=== PATIENT | female | born 1955 | race Caucasian/White ===

== ENCOUNTER 2017-01-07 06:22 | Day surgery (SDC) | payer OTHER ==
[~2017-01-07] VITALS: Ht 149.9 cm; Wt 56.7 kg
[~2017-01-07 06:22] MED LIST: ANTIINFLAMMATORY; HYDR-4452 PO; IRON; LEVO500T6 PO; METR500T1 PO; OXYC1TAB PO; SULF-59 PO; TRAZ-289 PO; [UNRECOGNIZED DRUG - REMARK]
[2017-01-07] MEDS ORDERED: MELO7.5T11 PO (08:08)
[2017-01-07] MEDS ORDERED: OMEG300C PO (08:08)
[2017-01-07] MEDS ORDERED: [UNRECOGNIZED DRUG - CODE] PO (08:08)
[2017-01-07] MEDS ORDERED: MULT-2253 PO (08:08)
[2017-01-07] MEDS ORDERED: LACTATED RINGERS 1,000 ML IV SCH (08:16)
[2017-01-07] MEDS ORDERED: HYDROmorphone 1 MG/ML AMP IVP PRN ×2 (08:20→09:45)
[2017-01-07] MEDS ORDERED: ONDANSETRON 4 MG/2 ML VIAL IVP PRN (08:20)
[2017-01-07] MEDS ORDERED: MEPERIDINE 25 MG/ML SYR IVP PRN (08:20)
[2017-01-07] MEDS ORDERED: diphenhydrAMINE 50 MG/ML VIAL IVP PRN (08:20)
[2017-01-07] MEDS ORDERED: MEPERIDINE 50 MG/ML SYR ONE (08:27)
[2017-01-07] MEDS ORDERED: MIDAZOLAM 2 MG/2 ML VIAL ONE (08:27)
[2017-01-07] MEDS ORDERED: fentaNYL 0.05 MG/ML VIAL ONE ×2 (08:27)
[2017-01-07] MEDS ORDERED: PROPOFOL 200 MG/20 ML VIAL IV ONE (08:30)
[2017-01-07] MEDS ORDERED: SEVOFLURANE 250 ML BTL INH ONE (08:30)
[2017-01-07] MEDS ORDERED: DEXAMETHASONE 4 MG/ML VIAL ONE (08:30)
[2017-01-07] MEDS ORDERED: ceFAZolin 1,000 MG VIAL ONE (08:30)
[2017-01-07] MEDS ORDERED: ONDANSETRON 4 MG/2 ML VIAL ONE (08:30)
[2017-01-07] MEDS ORDERED: LIDOCAINE 1% 50 ML ONE (08:46)
[2017-01-07] MEDS ORDERED: BUPIVACAINE-MPF/EPI 0.25% 30 ML VIAL INJ ONE (08:47)
[2017-01-07] MEDS ORDERED: HYDROcodone/APAP 5/325 MG 1 TAB TAB PO PRN (09:45)
[2017-01-07] MEDS ORDERED: MORPHINE SULFATE 2 MG/ML SYR IVP PRN (09:45)
[2017-01-07] MEDS ORDERED: ONDANSETRON 4 MG/2 ML VIAL IV PRN (09:45)
[2017-01-07] MEDS ORDERED: MORPHINE SULFATE 4 MG/ML SYR IV PRN (09:45)
[2017-01-07] MEDS ORDERED: MEPERIDINE 25 MG/ML SYR ONE (10:20)
[2017-01-07] MEDS ORDERED: HYDROmorphone PFS 2 MG/ML SYR ONE (10:51)
== END 2017-01-07 12:20 | disposition home or self-care (01) ==
LOC: MOR 06:22 → MMU 06:23 → MOR 12:20
PROVIDERS: ATTEND Surgery
DX: T81.4XXA Infection following a procedure, initial encounter (principal); M19.90 Unspecified osteoarthritis, unspecified site; M06.9 Rheumatoid arthritis, unspecified; Z93.3 Colostomy status; D64.9 Anemia, unspecified; Z87.891 Personal history of nicotine dependence
CPT/HCPCS: 13101; 22900; 71010; 87070; 87075; 87186; 87205; 93005; J0690; J1100; J1170; J2001; J2175; J2250; J2405; J2704; J3010; J3490; J7060; J7120; S0630; J7030

== ENCOUNTER 2017-12-13 07:10 | Inpatient (IN) | payer OTHER ==
[~2017-12-13] VITALS: Ht 149.9 cm; Wt 55.8 kg
[~2017-12-13 07:10] MED LIST changes: +ACET-787 PO; -HYDR-4452 PO; +MELO7.5T11 PO; +MULT-2253 PO; +OMEG300C PO; +[UNRECOGNIZED DRUG - CODE] PO
[2017-12-13] MEDS ORDERED: BUPIVACAINE-MPF 0.25% 30 ML VIAL INJ ONE (10:17)
[2017-12-13] MEDS ORDERED: fentaNYL 0.05 MG/ML VIAL ONE (10:21)
[2017-12-13] MEDS ORDERED: HYDROmorphone PFS 2 MG/ML SYR ONE ×2 (10:21→12:16)
[2017-12-13] MEDS ORDERED: PHENYLEPHRINE 10 MG/ML VIAL IV ONE (10:24)
[2017-12-13] MEDS ORDERED: ONDANSETRON 4 MG/2 ML VIAL IVP ONE (10:24)
[2017-12-13] MEDS ORDERED: GLYCOPYRROLATE 0.2 MG/ML VIAL IV ONE (10:24)
[2017-12-13] MEDS ORDERED: KETOROLAC 15 MG/ML VIAL IVP ONE (10:24)
[2017-12-13] MEDS ORDERED: DEXAMETHASONE 4 MG/ML VIAL IVP ONE (10:24)
[2017-12-13] MEDS ORDERED: DESFLURANE 240 ML BTL INH ONE (10:24)
[2017-12-13] MEDS ORDERED: SUCCINYLCHOLINE CHLORIDE 200 MG/10 ML VIAL IV ONE (10:24)
[2017-12-13] MEDS ORDERED: ROCURONIUM 50 MG/5 ML VIAL IV ONE (10:24)
[2017-12-13] MEDS ORDERED: PROPOFOL 200 MG/20 ML VIAL IV ONE (10:24)
[2017-12-13] MEDS ORDERED: ONDANSETRON 4 MG/2 ML VIAL IVP PRN (12:05)
[2017-12-13] MEDS ORDERED: ACETAMINOPHEN 325 MG TAB PO PRN (12:15)
[2017-12-13] MEDS ORDERED: MORPHINE SULFATE 4 MG/ML SYR IVP PRN (12:15)
[2017-12-13] MEDS ORDERED: ONDANSETRON 4 MG/2 ML VIAL IV PRN (12:15)
[2017-12-13] MEDS: NACL 0.9% 1,000 ML IV SCH (12:15)
[2017-12-13] MEDS: HYDROmorphone PFS 2 MG/ML SYR IVP PRN ×2 (12:17→12:27)
[2017-12-13 13:00] VITALS: BP 120/72
--- NOTE | 2017-12-13 13:00 | NUR ---
RECEIVED PATIENT FROM O.R. NURSES VIA BED. PATIENT IS AWAKE AT THIS TIME. PATIENT VITAL SIGNS ARE WNL: 97.9, 120/72, 77 HR, 97%, 16RR. PATIENT HAS IV 20G NOTED ON HER LEFT HAND. HOOKED PATIENT UP TO NORMAL SALINE LITER BAG AT 70 ML/HR. PER REPORT, PATIENT HAS KARLI IN HER ABDOMEN AREA. ABDOMINAL WOUND AREA COVERED BY DRY AND INTACT DRESSING AND DRAINING INTO A ALFREDO CHAVEZ TUBE. DRAINAGE IS SEROSANGUINEOUS. O.R. NURSE MIKE SAID THAT SHE DRAINED 10 ML EARLIER. PATIENT IS AWAKE AND ALERT AT THIS TIME. PLACED CALL LIGHT WITHIN REACH OF PATIENT. WILL CONTINUE TO MONITOR PATIENT.
--- NOTE | 2017-12-13 13:15 | NUR ---
PATIENT ALERT AND ORIENTED X4. PATIENT'S BLOOD PRESSURE IS 128/70, 69 HR, 95%, 98.0. PATIENT IN STABLE CONDITION. WILL CONTINUE TO MONITOR
--- NOTE | 2017-12-13 13:30 | NUR ---
PATIENT VITAL SIGNS: 98.4 TEMP, 125/77, 78 HR, 18RR, 98% ON 2 LITERS O2 VIA NC.
--- NOTE | 2017-12-13 14:00 | NUR ---
PATIENT VITAL SIGNS: 98 TEMP, 118/75, 78 HR, 16RR, 97% ON 2 LITERS O2 VIA NC.
--- NOTE | 2017-12-13 14:30 | NUR ---
PATIENT VITAL SIGNS: 97.9 TEMP, 121/74, 78 HR, 18RR, 97% ON 2 LITERS O2 VIA NC.
--- NOTE | 2017-12-13 15:00 | NUR ---
PATIENT RESTING IN BED. NO RESPIRATORY DISTRESS NOTED AT THIS TIME. NO RESPIRATORY DEPRESSION NOTED AT THIS TIME. WILL CONTINUE TO MONITOR PATIENT.
--- NOTE | 2017-12-13 15:30 | NUR ---
PATIENT VITAL SIGNS: 98 TEMP, 133/75, 81 HR, 16RR, 98% ON 2 LITERS O2 VIA NC.
[2017-12-13 16:00] VITALS: BP 133/77
--- NOTE | 2017-12-13 16:30 | NUR ---
PATIENT VITAL SIGNS: 97.8 TEMP, 128/70, 77 HR, 16RR, 96% ON 2 LITERS O2 VIA NC.
[2017-12-13] MEDS: HYDROcodone/APAP 5/325 MG 1 TAB TAB PO PRN ×2 (17:11→22:04)
--- NOTE | 2017-12-13 18:28 | NUR ---
DRAINED 45 ML OF BRIGHT RED BLOOD FROM ALFREDO CHAVEZ DRAIN. PATIENT IS IN STABLE CONDITION. WILL CONTINUE TO MONITOR PATIENT.
--- NOTE | 2017-12-13 19:15 | NUR ---
RECEIVED PATIENT REPORT AT BEDSIDE. PATIENT ASLEEP BUT AROUSABLE. PATIENT ON 2L O2 VIA NC. NO S/S OF DISTRESS. ABD WOUND DRESSING NOTED. DRESSING CLEAN DRY AND INTACT. FAIZA DRAIN IN PLACE WITH 5ML OF BRIGHT RED DRAINAGE NOTED AT THIS TIME. IV LINE NOTED TO THE LEFT HAND WITH IVF INFUSING WELL. BED LOWERED WITH CALL LIGHT WITHIN REACH. WILL CONTINUE TO MONITOR
--- NOTE | 2017-12-13 19:20 | NUR ---
PATIENT RECEIVED 490 NORMAL SALINE 0.9 THROUGHOUT SHIFT. PATIENT TOLERATED WELL.
--- NOTE | 2017-12-13 19:24 | NUR ---
GAVE REPORT TO NIGHTSHIFT NURSE AT BEDSIDE. PATIENT IN STABLE CONDITION.
[2017-12-13] MEDS: MORPHINE SULFATE 4 MG/ML SYR IV PRN (19:51)
[2017-12-13 20:00] VITALS: BP 131/70
--- NOTE | 2017-12-13 21:57 | NUR ---
PATIENT ASLEEP IN BED. NO S/S OF DISTRESS NOTED
--- NOTE | 2017-12-13 23:30 | NUR ---
PATIENT ASLEEP IN BED. NO S/S OF DISTRESS NOTED
[2017-12-14] VITALS: BP 142/76
[2017-12-14] MEDS: MORPHINE SULFATE 4 MG/ML SYR IV PRN ×2 (00:01→06:06)
--- NOTE | 2017-12-14 02:00 | NUR ---
PATIENT ASLEEP IN BED. NO S/S OF DISTRESS NOTED
[2017-12-14] MEDS: NACL 0.9% 1,000 ML IV SCH ×2 (02:56→19:47)
[2017-12-14] MEDS: HYDROcodone/APAP 5/325 MG 1 TAB TAB PO PRN ×4 (03:00→19:24)
--- NOTE | 2017-12-14 06:00 | NUR ---
PATIENT AMBULATED TO THE BATHROOM TO VOID. PATIENT TOLERATED WELL
--- NOTE | 2017-12-14 06:22 | NUR ---
35ML OF SANGUINOUS DRAINAGE EMPTIED FROM THE FAIZA DRAIN
[2017-12-14 07:01] LABS: HEMATOCRIT 30.9 % (36-48); HEMOGLOBIN 9.4 g/dL (12.0-16.0); MEAN CORPUSCULAR HEMOGLOBIN 20 pg (27-31); MEAN CORPUSCULAR HGB CONC 31 g/dL (33-37); MEAN CORPUSCULAR VOLUME 65.3 fL (80-94); PLATELET COUNT (AUTO) 322 K/uL (140-450); RED BLOOD CELL COUNT(AUTO) 4.73 MIL/uL (4.20-5.40); RED CELL DISTRIBUTION WIDTH 15.5 % (11.6-13.7); WHITE BLOOD COUNT (AUTO) 20.3 K/uL (4.8-10.8)
--- NOTE | 2017-12-14 07:18 | NUR ---
PATIENT REPORT GIVEN AT BEDSIDE. PATIENT ENDORSED IN STABLE CONDITION
--- NOTE | 2017-12-14 07:18 | NUR ---
RECEIVED REPORT FROM NIGHTSHIFT NURSE AT BEDSIDE. UPDATED ON PATIENT'S CONDITION. PATIENT IS ASLEEP BUT AROUSABLE TO NAME. NO COMPLAINTS OF PAIN AT THIS TIME. NO RESPIRATORY DISTRESS OR RESPIRATORY DEPRESSION NOTED AT THIS TIME. UPDATED BOARD IN PATIENT'S ROOM AND PUT CALL LIGHT WITHIN REACH OF PATIENT. APPROPRIATE SIGNS PLACED OUTSIDE OF PATIENT'S ROOM. INSTRUCTED PATIENT TO CALL IF SHE NEEDS HELP WITH ANYTHING. PATIENT UNDERSTOOD. WILL CONTINUE TO MONITOR PATIENT.
[2017-12-14 08:30] VITALS: BP 140/62
[2017-12-14 08:32] LABS: LYMPHOCYTES % (MANUAL) 10 % (20-46); MONOCYTES % (MANUAL) 2 % (5-12)
--- NOTE | 2017-12-14 09:35 | NUR ---
PATIENT ASLEEP AT THIS TIME. APPLIED WARM COMPRESS TOWELS TO PATIENTS RIGHT SHOULDER. PATIENT COMPLAINS OF PAIN IN THIS AREA. NO SIGNS OF RESPIRATORY DISTRESS OR RESPIRATORY DEPRESSION. WILL CONTINUE TO MONITOR PATIENT.
[2017-12-14 10:44] LABS: ANION GAP 8.7 (8-16); CARBON DIOXIDE 30.4 mmol/L (21-32); CREATININE 0.6 mg/dL (0.6-1.3); POTASSIUM 4.1 mmol/L (3.5-5.1); TOTAL BILIRUBIN 0.5 mg/dL (0.0-1.0)
[2017-12-14] MEDS: PIPER/TAZO 3.375GM/D5W PREMIX 50 ML IV SCH ×2 (11:01→17:07)
--- NOTE | 2017-12-14 11:01 | NUR ---
HUNG ZOSYN 3.375 G / 50 ML THROUGH IV PIGGYBACK. WILL CONTINUE TO MONITOR PATIENT.
--- NOTE | 2017-12-14 11:15 | NUR ---
PAGED DR. TOMLINSON REGARDING PATIENT'S CRITICAL RADIOLOGY REPORT. AWAITING RESPONSE FROM DR. TOMLINSON.
--- NOTE | 2017-12-14 12:00 | NUR ---
CALLED SURGERY TO TRY AND SPEAK TO DR. TOMLINSON. DR. TOMLINSON IS IN SURGERY RIGHT NOW. WILL ATTEMPT TO CALL REGARDING CRITICAL RADIOLOGY REPORT.
--- NOTE | 2017-12-14 12:52 | NUR ---
SPOKE TO DR. TOMLINSON REGARDING CRITICAL RADIOLOGIC REPORT. SAID HE HAD SEEN THE FINDINGS BEFORE AND WAS NOT TOO CONCERNED ABOUT THE FINDINGS BECAUSE OF THE RECENT SURGERY. DR. TOMLINSON WAS IN SURGERY AND WAS NOT ABLE TO RESPOND RIGHT AWAY TO MY ATTEMPTS TO PAGE HIM.
--- NOTE | 2017-12-14 13:31 | NUR ---
PATIENT ABLE TO WALK ABOUT 40 FEET. PATIENT SAYS "IT HURTS TO WALK RIGHT NOW. I KNOW I CAN WALK FURTHER THOUGH" WILL ATTEMPT TO WALK WITH PATIENT LATER ON.
--- NOTE | 2017-12-14 14:28 | NUR ---
PATIENT SLEEPING AT THIS TIME. NO RESPIRATORY DISTRESS OR RESPIRATORY DEPRESSION NOTED. WILL CONTINUE TO MONITOR PATIENT.
[2017-12-14 16:00] VITALS: BP 145/62
--- NOTE | 2017-12-14 16:59 | NUR ---
PATIENT RESTING IN BED AT THIS TIME. FAMILY MEMBERS AT BEDSIDE. PATIENT SHOWS NO SIGNS OF RESPIRATORY DISTRESS. WILL CONTINUE TO MONITOR PATIENT.
--- NOTE | 2017-12-14 19:22 | NUR ---
GAVE REPORT TO NIGHTSHIFT NURSE AT BEDSIDE. PATIENT IN STABLE CONDITION.
--- NOTE | 2017-12-14 19:23 | NUR ---
RECEIVED BEDSIDE REPORT FROM DAY SHIFT NURSE SUSAN RN, PT STABLE, NO DISTRESS NOTED, IV TO L HAND 20G RUNNING NS @70ML/HR, PT ON ROOM AIR NO SOB, INITIAL ASSESSMENT DONE, ALL SAFETY PRECAUTION MET, WILL CONTINUE TO MONITOR.
[2017-12-14] MEDS: HYDROmorphone PFS 2 MG/ML SYR IVP PRN (21:53)
--- NOTE | 2017-12-14 21:53 | NUR ---
PT C/O PAIN 10/10, PT CRYING AND IRRITABLE, PAIN MEDICATION GIVEN, PT TOLERATED WELL, NO DISTRESS NOTED, CALL LIGHT WITHIN REACH, WILL CONTINUE TO MONITOR.
--- NOTE | 2017-12-14 23:44 | NUR ---
CHECKED ON PT, PT SLEEPING, NO DISTRESS NOTED, CALL LIT WITHIN REACH, WILL CONTINUE TO MONITOR.
[2017-12-15] VITALS: BP 115/73
[2017-12-15] MEDS: PIPER/TAZO 3.375GM/D5W PREMIX 50 ML IV SCH ×5 (00:16→21:31)
[2017-12-15] MEDS: HYDROcodone/APAP 5/325 MG 1 TAB TAB PO PRN ×2 (00:58→11:49)
--- NOTE | 2017-12-15 00:58 | NUR ---
PT C/O PAIN 01/29, PAIN MEDICATION GIVEN, PT TOLERATED WELL, NO DISTRESS NOTED, CALL LIGHT WITHIN REACH, WILL CONTINUE TO MONITOR.
--- NOTE | 2017-12-15 03:11 | NUR ---
PT SLEEPING, NO DISTRESS NOTED, CALL LIT WITHIN REACH, WILL CONTINUE TO MONITOR.
--- NOTE | 2017-12-15 05:31 | NUR ---
DUE MEDICATION GIVEN, PT TOLERATED WELL, NO DISTRESS NOTED, CALL LIGHT WITHIN REACH, WILL CONTINUE TO MONITOR.
[2017-12-15] MEDS: HYDROmorphone PFS 2 MG/ML SYR IVP PRN ×3 (06:02→23:50)
[2017-12-15] MEDS: NACL 0.9% 1,000 ML IV SCH ×2 (06:27→11:56)
[2017-12-15 07:06] LABS: BASOPHILS # (AUTO) 0.1 K/uL (0.00-0.22); BASOPHILS % (AUTO) 0.9 % (0.0-2.0); EOSINOPHILS # (AUTO) 0.3 K/uL (0-0.4); EOSINOPHILS % (AUTO) 1.8 % (0.0-4.0); HEMATOCRIT 29.7 % (36-48); HEMOGLOBIN 9.2 g/dL (12.0-16.0); LYMPHOCYTES # (AUTO) 1.2 K/uL (2.5-16.5); LYMPHOCYTES % (AUTO) 7.9 % (20.5-51.1); MEAN CORPUSCULAR HEMOGLOBIN 20 pg (27-31); MEAN CORPUSCULAR HGB CONC 31 g/dL (33-37); MEAN CORPUSCULAR VOLUME 65.5 fL (80-94); MONOCYTES # (AUTO) 0.5 K/uL (0.8-1.0); MONOCYTES % (AUTO) 3.1 % (1.7-9.3); NEUTROPHILS # (AUTO) 13.3 K/uL (1.8-7.7); NEUTROPHILS % (AUTO) 86.3 % (42.2-75.2); PLATELET COUNT (AUTO) 290 K/uL (140-450); RED BLOOD CELL COUNT(AUTO) 4.53 MIL/uL (4.20-5.40); RED CELL DISTRIBUTION WIDTH 15.3 % (11.6-13.7); WHITE BLOOD COUNT (AUTO) 15.4 K/uL (4.8-10.8)
--- NOTE | 2017-12-15 07:37 | NUR ---
ENDORSED PLAN OF CARE TO DAY SHIFT NURSE RONAK RN, PT STABLE, NO DISTRESS NOTED, CALL LIGHT WITHIN REACH.
--- NOTE | 2017-12-15 07:38 | NUR ---
RECEIVED REPORT FROM THE [employer] MACHINE OPERATOR NURSE AT BEDSIDE FOR CONTINUITY OF CARE. PT IS AWAKE AND ORIENTED. INTRODUCED MYSELF AND UPDATED THE BOARD. PT IS MS; AMBULATED WITH VERY LITTLE ASSIST; PT HAS AN ABD INCISION. S/P EX LAP ABD WALL/ DEBRIDEMENT OF ABD WALL 12/14. DRESSING INTACT. FAIZA DRAIN. NC O2 2L PRN. PT NOT WEARING IT AT THIS TIME. SCD'S IN PLACE. IV ON R HAND 20G NS AT 70ML. WILL LIKE SOME UNDERWEAR. GAVE HER 2 DISPOSABLE UNDERWEAR. ASSISTED PT TO THE RESTROOM AND BACK. WOULD LIKE A CUP OF TEA. BROUGHT HER SOME. WILL CONTINUE TO MONITOR PT.
[2017-12-15 08:00] VITALS: BP 156/74
--- NOTE | 2017-12-15 09:53 | NUR ---
PATIENT HAS BEEN SCREENED AND CATEGORIZED HIGH NUTRITION RISK. PATIENT WILL BE SEEN WITHIN 1-2 DAYS OF ADMISSION. 12/15/17 - 12/16/[address]
--- NOTE | 2017-12-15 10:46 | NUR ---
PT SLEEPING SOUNDLY. NO SIGNS OF DISTRESS. WILL CONTINUE TO MONITOR PT.
--- NOTE | 2017-12-15 12:00 | NUR ---
ADMINISTERED PAIN MED AND ZOSYN. PT TOLERATING WELL. PAIN LEVEL 6/10 ON L LEG. FIXED HER BED. PT LYING DOWN. FELL ASLEEP AFTER TAKING PAIN MED. PT SLEEPING SOUNDLY.
--- NOTE | 2017-12-15 13:21 | NUR ---
CM NOTE INITIAL REVIEW FAXED TO [facility] [phone] PAT # [phone]
--- NOTE | 2017-12-15 14:21 | NUR ---
PT SLEEPING SOUNDLY. NO SIGNS OF DISTRESS. WILL CONTINUE TO MONITOR PT.
[2017-12-15 16:00] VITALS: BP 176/101
--- NOTE | 2017-12-15 16:55 | NUR ---
ADMINISTERED PAIN MED PER PT REQUEST. PT PAIN LEVEL 7/10. PT TOLERATED WELL. WILL CONTINUE TO MONITOR PT.
--- NOTE | 2017-12-15 19:20 | NUR ---
GAVE FOLDER TO WATER JET OPERATOR. THE [employer] RO[employer] IS NOT HERE YET. SHE WILL BE HERE LATE.
--- NOTE | 2017-12-15 19:30 | NUR ---
RECEIVED SBAR WRITTEN BY AM RN. PATIENT IS SLEEPY AND ASKED IF SHE HAD EVENING MEDS. ONLY ATB AT 00:00.
[2017-12-16] VITALS: BP 152/78
--- NOTE | 2017-12-16 07:25 | NUR ---
RECEIVED REPORT FROM TELEPHONE RECORDER NURSE AT BEDSIDE FOR CONTINUITY OF CARE. PT IS AWAKE AND ORIENTED. INTRODUCED MYSELF AND UPDATED THE BOARD. PT IS IN STABLE CONDITION. AWAITING BREAKFAST. DENIES PAIN AT THIS TIME. ABD INC W/ FAIZA DRAIN, STILL DRY AND INTACT. IV ON R HAND 20G NS AT 70ML INFUSING. SCD'S ON. WILL CONTINUE TO MONITOR PT.
[2017-12-16 08:00] VITALS: BP 173/107
[2017-12-16] MEDS ORDERED: ENOXAPARIN 40 MG/0.4 ML SYR SUBQ SCH (09:00)
[2017-12-16 09:06] LABS: BASOPHILS # (AUTO) 0.1 K/uL (0.00-0.22); EOSINOPHILS # (AUTO) 0.3 K/uL (0-0.4); EOSINOPHILS % (AUTO) 3.2 % (0.0-4.0); HEMATOCRIT 31.4 % (36-48); HEMOGLOBIN 9.9 g/dL (12.0-16.0); LYMPHOCYTES # (AUTO) 1.2 K/uL (2.5-16.5); LYMPHOCYTES % (AUTO) 11.3 % (20.5-51.1); MEAN CORPUSCULAR HEMOGLOBIN 20 pg (27-31); MEAN CORPUSCULAR HGB CONC 32 g/dL (33-37); MEAN CORPUSCULAR VOLUME 64.8 fL (80-94); MONOCYTES # (AUTO) 0.7 K/uL (0.8-1.0); MONOCYTES % (AUTO) 7.1 % (1.7-9.3); NEUTROPHILS % (AUTO) 77.4 % (42.2-75.2); PLATELET COUNT (AUTO) 284 K/uL (140-450); RED BLOOD CELL COUNT(AUTO) 4.84 MIL/uL (4.20-5.40); RED CELL DISTRIBUTION WIDTH 15.9 % (11.6-13.7); WHITE BLOOD COUNT (AUTO) 10.4 K/uL (4.8-10.8)
[2017-12-16] MEDS: NACL 0.9% 1,000 ML IV SCH (09:06)
--- NOTE | 2017-12-16 09:16 | NUR ---
ADMINISTERED MORNING MED. COLLAR SETTER OVERLOCK DID NOT ADMINISTER 0600 ZOSYN. CALLED TO VERIFY TO SEE IF IT'S OK TO GIVE NOW. PER PHARMACIST, NEXT DOSE IS AT 1200, GIVE IT AT 1100. DR TOMLINSON WAS HERE AND REMOVED THE ABD DRESSING. KARLI INTACT. WILL CLEAN, TAKE PICTURE AND REMOVED THE FAIZA DRAIN LATER. WILL CONTINUE TO MONITOR PT.
--- NOTE | 2017-12-16 09:59 | NUR ---
PT AMBULATING IN THE HALLS. PT GAIT STABLE. WILL CONTINUE TO MONITOR PT.
[2017-12-16] MEDS: HYDROmorphone PFS 2 MG/ML SYR IVP PRN (10:44)
[2017-12-16] MEDS: PIPER/TAZO 3.375GM/D5W PREMIX 50 ML IV SCH (10:59)
--- NOTE | 2017-12-16 11:09 | NUR ---
ADMINISTERED PAIN MED, REMOVED THE FAIZA DRAIN. PT TOLERATED WELL. TOOK PICTURE OF THE ABD. WILL CONTINUE TO MONITOR PT.
--- NOTE | 2017-12-16 14:00 | NUR ---
DC INSTRUCTIONS GIVEN TO PT. PT VERBALIZED UNDERSTANDING. REMOVED IV, CANNULA INTACT. NO BLEEDING NOTED. REMOVED ID BANDS. PT WILL GET DRESSED AND GATHER PERSONAL INFORMATION. WILL LET ME KNOW WHEN READY.
--- NOTE | 2017-12-16 14:15 | NUR ---
PT WHEELCHAIRED OUT TO THE CAR. SIG OTHER WAITING FOR PT. PT IN STABLE CONDITION.
--- NOTE | 2017-12-16 15:49 | NUR ---
CALLED PAT FROM [facility] AND INFORMED HER PATIENT IS DISCHARGED TODAY.
== END 2017-12-16 14:15 | disposition home or self-care (01) | DRG 791 ==
LOC: MOR 07:10 → MMU 07:11 → MTU 16:52 → MOR 12-15 13:56 → MTU 12-15 13:56
PROVIDERS: ADMIT Surgery; ATTEND Surgery
PROC: 0WBF0ZZ Excision of Abdominal Wall, Open Approach (ICD-10-PCS; principal; 2017-12-13 09:30)
PROC: 0WJG0ZZ Inspection of Peritoneal Cavity, Open Approach (ICD-10-PCS; 2017-12-13 09:30)
DX: T81.89XA Other complications of procedures, not elsewhere classified, initial encounter (principal); K66.8 Other specified disorders of peritoneum; K66.0 Peritoneal adhesions (postprocedural) (postinfection); M19.90 Unspecified osteoarthritis, unspecified site; Y83.8 Other surgical procedures as the cause of abnormal reaction of the patient, or of later complication, without mention of misadventure at the time of the procedure; Y92.89 Other specified places as the place of occurrence of the external cause
CPT/HCPCS: 36415; 71045; 74018; 80053; 85025; 87081; 88304; 93005; J0330; J0690; J1100; J1170; J1650; J1885; J2270; J2370; J2405; J2543; J2704; J3010; J3490; J7030; J7060; Q0092